=== PATIENT | male | born 1955 | race Caucasian/White ===

== ENCOUNTER 2016-08-27 21:59 | Emergency (ER) | payer OTHER ==
[2016-08-27] MEDS ORDERED: DUONEB NEB STA (22:05)
[2016-08-27] MEDS ORDERED: XOPENEX 1.25 MG NEB STA (22:05)
[2016-08-27] MEDS ORDERED: SOLU-MEDROL 125 MG IVP STA (22:05)
[2016-08-27 22:09] VITALS: BP 184/126; TEMP 97.1; BMI 22.8
[2016-08-27 22:11] LABS: BASOPHILS # (AUTO) 0.1 K/uL (0-0.2); BASOPHILS % (AUTO) 0.6 % (0.0-3.0); EOSINOPHILS # (AUTO) 0.1 K/ul (0.0-0.7); EOSINOPHILS % (AUTO) 1.3 % (0.0-7.0); HEMATOCRIT 50.5 % (42.0-52.0); HEMOGLOBIN 17.7 g/dl (14.0-18.0); IMMATURE GRANULOCYTE % (AUTO) 0.3 % (0.0-5.0); LYMPHOCYTES # (AUTO) 0.7 K/uL (0.60-3.4); LYMPHOCYTES % (AUTO) 8.9 (10.0-50.0); MEAN CORPUSCULAR HEMOGLOBIN 32.1 pg (27.0-31.0); MEAN CORPUSCULAR VOLUME 91.5 fl (80.0-94.0); MONOCYTES # (AUTO) 0.5 K/uL (0.4-2.0); MONOCYTES % (AUTO) 6.6 (0-10); NEUTROPHILS # (AUTO) 6.5 K/ul (2.0-6.9); NEUTROPHILS % (AUTO) 82.3; PLATELET COUNT 268 10^3/uL (140-440); RED BLOOD COUNT 5.52 10^6/ul (4.70-6.10); WHITE BLOOD COUNT 7.84 K/ul (4.2-10.2)
[2016-08-27 22:11] LABS: ABG BASE EXCESS -3 (-2.0-2.0); ABG HCO3 22.6 (22.0-26.0); ABG PCO2 42.8 mmHg (35-45); ABG TCO2 24 (22.0-28.0)
[2016-08-27 22:46] LABS: ALANINE AMINOTRANSFERASE 27 U/L (12-78); ALBUMIN 4.5 g/dL (3.4-5.0); ALBUMIN/GLOBULIN RATIO 1.32; ALKALINE PHOSPHATASE 75 U/L (56-119); ANION GAP 15.2; ASPARTATE AMINO TRANSFERASE 21 U/L (15-37); BILIRUBIN,TOTAL 0.66 mg/dL (0.00-1.20); BLOOD UREA NITROGEN 8 mg/dL (7-18); CALCIUM 9.5 mg/dL (8.2-10.2); CARBON DIOXIDE 22 mmol/L (23-31); CHLORIDE 107 mmol/L (98-107); CREATINE KINASE 147 U/L; CREATINE KINASE MB 3.4 ng/ml (0.0-3.6); CREATININE 0.93 mg/dL (0.60-1.10); GLUCOSE 123 mg/dL (82-115); POTASSIUM 4.2 mmol/L (3.5-5.1); SODIUM 140 mmol/L (136-145); TOTAL PROTEIN 7.9 g/dL (5.8-8.1)
--- NOTE | 2016-08-27 22:57 | ED.PDOC ---
General ED Provider: Dr. DAMIEN MARTINEZ-ER Chief Complaint: Shortness of Air Stated Complaint: im sob and wheezing Time Seen by Physician: 22:05 Mode of Arrival: Wheelchair Information Source: Family Exam Limitations: No limitations Nursing and Triage Documentation Reviewed and Agree: Yes Respiratory Complaint Exam - Shortness of Air Complaint/Exam Onset/Duration: 24hrs Symptoms Are: Still present Timing: Intermittent Initial Severity: Mild Current Severity: Moderate Character: Reports: Dyspnea at rest Aggravating: Reports: Smoke exposure Alleviating: Reports: Bronchodilators Associated Signs and Symptoms: Reports: Cough, Wheezing, Rapid breathing, Labored breathing Related History: Reports: Similar episode History of Healthcare-Acquired Pneumonia: No Pulmonary Embolism Risk Factors: Reports: Smoking Cardiac Risk Factors: Reports: Smoking Tuberculosis Risk Factors: Reports: Smoking Home Oxygen Use: No Recent Stress Test: No Recent Echo/LV Function: No Respiratory Distress: None Stridor Present: No Tracheal Deviation: No Subcutaneous Emphysema: No Accessory Muscle Use: No Retractions: Not Present Diminished Breath Sounds: No Prolonged Expiratory Phase: No Unable to Speak Full Sentences: No Fatigue: No Leg Swelling: No Mani's Sign Present: No Grunting Respirations: No Kussmaul Respirations: No Differential Diagnoses: Asthma, COPD Exacerbation Quality Indicator For Non-Traumatic Chest Pain/Syncope: EKG Performed Review of Systems - Review Of Systems Constitutional: Reports: No symptoms Eyes: Reports: No symptoms Ears, Nose, Mouth, Throat: Reports: No symptoms Respiratory: Reports: Cough, Short of air, Wheezing Cardiac: Reports: No symptoms GI: Reports: No symptoms : Reports: No symptoms Musculoskeletal: Reports: No symptoms Skin: Reports: No symptoms Neurological: Reports: No symptoms Endocrine: Reports: No symptoms Hematologic/Lymphatic: Reports: No symptoms All Other Systems: Reviewed and Negative Past Medical History - Past Medical History Previously Healthy: Yes Endocrine: Reports: Unknown Cardiovascular: Reports: Unknown Respiratory: Reports: COPD, Asthma Hematological: Reports: None Gastrointestinal: Reports: None Genitourinary: Reports: None Neuro/Psych: Reports: None Musculoskeletal: Reports: None Cancer: Reports: None - Surgical History General Surgical History: Reports: Unknown - Family History Family History: Reports: Unknown - Social History Smoking Status: Current every day smoker, Heavy tobacco smoker Hx Substance Use: (OCCASIONAL MARIJUANA) Alcohol Screening: Occasionally Lives: With family - Immunizations Tetanus Shot up to Date: Yes Physical Exam - Physical Exam Appearance: Well-appearing, No pain distress, Well-nourished Eyes: AD, EOMI, Conjunctiva clear ENT: Ears normal, Nose normal, Oropharynx normal Neck: Supple Respiratory: Airway patent, Breath sounds clear, Breath sounds equal, Respirations nonlabored Cardiovascular: RRR, Pulses normal, No rub, No murmur GI/: Soft, Nontender, No masses, Bowel sounds normal, No Organomegaly Musculoskeletal: Normal strength, ROM intact, No edema, No calf tenderness Skin: Warm, Dry, Normal color Neurological: Sensation intact, Motor intact, Reflexes intact, Cranial nerves intact, Alert, Oriented Psychiatric: Affect appropriate Interpretation - Radiology Interpretation Radiology Interpretation By: Radiologist Radiology Results: Negative Exam Interpreted: Portable CXR - EKG Interpretation Time of EKG #1: 21:55 Rate: Normal Rhythm: Sinus Ectopy: None [place]: [place] ST Segment: Normal Re-Evaluation - Re-Evaluation Time of Re-Evaluation: 23:01 Status: Improved (no wheezing or chest--coughing up copious amounts of mucous and feels much better) Vital Signs Stable: Yes Pain Level: 0 Appearance: NAD Lungs: Clear Skin: Warm and Dry Neuro: Alert and Oriented X3 CV: RRR Critical Care Note - Critical Care Note Total Time (mins): 0 Course - Course Hematology/Chemistry: 08/27/16 22:11 08/27/16 22:11 Orders, Labs, Meds: Lab Review 08/27/16 08/27/16 22:02 22:11 WBC 7.84 RBC 5.52 Hgb 17.7 Hct 50.5 MCV 91.5 MCH 32.1 H MCHC 35.0 RDW Coeff of Shailesh 13.2 Plt Count 268 Immature Gran % (Auto) 0.3 Neut % (Auto) 82.3 Lymph % (Auto) 8.9 L [place] % (Auto) 6.6 Eos % (Auto) 1.3 Baso % (Auto) 0.6 Immature Gran # (Auto) 0.0 Neut # 6.5 Lymph # 0.7 [place] # 0.5 Eos # 0.1 Baso # 0.1 D-Dimer (Manual) 340.47 Puncture Site Rr O2 Saturation 92.0 L ABG pH 7.330 L ABG pCO2 42.8 ABG pO2 69.0 L ABG HCO3 22.6 ABG Total CO2 24 ABG Base Excess -3 L Bean Test + FiO2 % 21.0 Sodium 140 Potassium 4.2 Chloride 107 Carbon Dioxide 22 L Anion Gap 15.2 BUN 8 Creatinine 0.93 Estimated GFR (MDRD) 82.00 BUN/Creatinine Ratio 8.60 Glucose 123 H Calcium 9.5 Total Bilirubin 0.66 AST 21 ALT 27 Alkaline Phosphatase 75 Total Creatine Kinase 147 CK-MB (CK-2) 3.4 CK-MB (CK-2) % 2.19016 Troponin I < 0.0100 B-Natriuretic Peptide 46 Total Protein 7.9 Albumin 4.5 Globulin 3.4 Albumin/Globulin Ratio 1.32 Orders Category Date Time Status ABG DRAW REQUEST Stat CARDIO 08/27/16 22:04 Completed EKG-(ED ONLY) Stat CARDIO 08/27/16 22:04 Completed NEBULIZER TREATMENT Stat CARDIO 08/27/16 22:05 Completed Pharmacist Per Diem [ED TECHNOLOGY APPLICATIONS TEACHER APPLIED] .ONCE EMERGENCY 08/27/16 22:06 Active ED IV/MEDIPORT/POWERPORT .ONCE EMERGENCY 08/27/16 22:05 Active ABG Stat LAB 08/27/16 22:02 Completed BNP [B-TYPE NATRIURETIC PEPTIDE] Stat LAB 08/27/16 22:11 Completed CBC W/ AUTO DIFF Stat LAB 08/27/16 22:11 Completed COMPREHENSIVE METABOLIC PANEL Stat LAB 08/27/16 22:11 Completed CREATINE KINASE Stat LAB 08/27/16 22:11 Completed D-DIMER Stat LAB 08/27/16 22:11 Completed TROPONIN I Stat LAB 08/27/16 22:11 Completed 0.9 % Sodium Chloride [Saline Flush] MEDS 08/27/16 22:05 Ordered 1 syr IVF PRN PRN Ipratropium/Albuterol Neb [Duoneb] MEDS 08/27/16 22:05 Discontinued 1 vial NEB ONCE STA Levalbuterol HCl [Xopenex 1.25 mg] MEDS 08/27/16 22:05 Discontinued 1 vial NEB ONCE STA Methylprednisolone Sod Succ/Pf [Solu-Medrol 125 mg] MEDS 08/27/16 22:05 Discontinued 125 mg IVP ONCE STA CXR [CHEST, 1V AP ONLY] Stat RADS 08/27/16 22:05 Taken Medications Generic Name Dose Route Start Last Admin Trade Name Freq PRN Reason Stop Dose Admin Sodium Chloride 1 syr 08/27/16 22:05 Saline Flush IVF PRN PRN To flush IV Discontinued Medications Generic Name Dose Route Start Last Admin Trade Name Myron PRN Reason Stop Dose Admin Albuterol/Ipratropium 1 vial 08/27/16 22:05 08/27/16 22:05 Duoneb NEB 08/27/16 22:06 1 vial ONCE STA Administration Levalbuterol HCl 1 vial 08/27/16 22:05 08/27/16 22:15 Xopenex 1.25 Mg NEB 08/27/16 22:06 1 vial ONCE STA Administration Methylprednisolone Sodium Succinate 125 mg 08/27/16 22:05 08/27/16 22:39 Solu-Medrol 125 Mg IVP 08/27/16 22:06 125 mg ONCE STA Administration Vital Signs: Temp Pulse Resp BP Pulse Ox 08/27/16 22:02 97.1 F L 90 28 H 184/126 H 94 L Departure - Departure Time of Disposition: 23:02 Disposition: HOME SELF-CARE Discharge Problem: COPD exacerbation Instructions: COPD (Chronic Obstructive Pulmonary Disease) (ED) Condition: Good Pt referred to PMD for follow-up: Yes Additional Instructions: augmentin 875mg bid x 7 days--prednisone 40mg x3 days then 20mg x3 days then 10mg x3 days--mucinex 1200mg bid --stop smoking---stay in air conditioning at all times.. Allergies/Adverse Reactions: Allergies No Known Drug Allergies Adverse Reaction (Verified 08/27/16 22:12) Home Medications: Ambulatory Orders Albuterol Sulfate 0.083% Neb [Albuterol 0.083% Neb] 1 vial NEB TID 08/27/16 Disposition Discussed With: Patient, Family
--- NOTE | 2016-08-28 06:05 | DI ---
EXAM: AP single view of the chest. HISTORY: Dyspnea. FINDINGS: There is an old right rib fracture. The cardiac silhouette and pulmonary vasculature are w ithin normal limits. The costophrenic angles are clear. No infiltrate or consolidation. Impression: No acute cardiopulmonary disease.
== END 2016-08-27 23:10 | disposition home or self-care (01) ==
LOC: ED 21:59
DX: J44.1 Chronic obstructive pulmonary disease with (acute) exacerbation (principal); R06.02 Shortness of breath; F17.200 Nicotine dependence, unspecified, uncomplicated
CPT/HCPCS: 36415; 80053; 82550; 82553; 82803; 83880; 84484; 85025; 85379; 93005; 93010; 94640; 96374; 96375; 96376; 99284